=== PATIENT | female | born 1950 | race Caucasian/White ===

== ENCOUNTER → 2020-02-10 13:25 | Outpatient (CLI) | payer MEDICARE, OTHER, SELFPAY ==
--- NOTE | ~2020-02-10 | US_ITS ---
EXAMINATION: US pelvic complete DATE: 02/10/2020 13:50 INDICATION: Left ovarian cyst. TECHNIQUE: Multiple transabdominal sonographic images of the pelvis were obtained. COMPARISON: None. FINDINGS: The uterus measures 5.6 x 2.7 x 3.6 cm. There is no free fluid in the pelvis. The endometrial complex measures 4 mm in thickness. The right ovary measures 2.7 x 1.4 x 2.2 cm. The left ovary measures 7.1 x 5.0 x 6.1 cm. There is a 6.4 cm cyst in left ovary with marginal hypoechoic components. IMPRESSION: 1. 6.4 cm cystic mass in left ovary, which may be benign or malignant. Consider pelvis MRI without an d with contrast or surgical evaluation. Reviewed, dictated and finalized at location A. IMPRESSION: 1. 6.4 cm cystic mass in left ovary, which may be benign or malignant. Consider pelvis MRI without and with contrast or surgical evaluation.
== END ==
PROVIDERS: Visit Provider Obstetrics & Gynecology Gynecology
DX: N83.202 Unspecified ovarian cyst, left side (principal)
CPT/HCPCS: 76856

== ENCOUNTER 2020-12-04 18:01 | IRF | payer OTHER, MEDICARE, SELFPAY ==
--- NOTE | ~2020-12-04 | US_ITS ---
EXAMINATION: US venous doppler [facility] DATE: 12/07/2020 11:10 INDICATION: Lower limb swelling. TECHNIQUE: Grayscale ultrasound images without and with compression and Doppler ultrasound images of the bilateral lower extremity veins were obtained. COMPARISON: None. FINDINGS: The visualized portions of right common femoral vein, profunda (deep) femoral vein, femoral vein, pop liteal vein, peroneal veins, posterior tibial veins, and greater saphenous vein outflow are patent. The visualized portions of left common femoral vein, profunda femoral vein, femoral vein, popliteal v ein, peroneal veins, posterior tibial veins, and greater saphenous vein outflow are patent. IMPRESSION: 1. No deep venous thrombosis. Reviewed, dictated and finalized at location A.
--- NOTE | ~2020-12-04 | US_ITS ---
EXAMINATION: US abdomen limited DATE: 12/09/2020 15:06 INDICATION: Transaminitis TECHNIQUE: Multiple grayscale and Doppler ultrasound images of the abdomen were obtained. COMPARISON: None available FINDINGS: The head and body of the pancreas are normal. The pancreatic tail is obscured by bowel gas. The liver is normal with normal echogenicity and echotexture. No surface nodularity. Normal hepatope felicitas flow in the main portal vein. The gallbladder is normal with no abnormal wall thickening, pericho lecystic fluid or stones. The normal common bile duct measures 4 mm. There was no sonographic Gonsales sign. IMPRESSION: 1. Normal sonographic study of the gallbladder. Reviewed, dictated and finalized at location B.
[2020-12-04 17:40] VITALS: BP 132/62; PULSE 85; RESP 20; TEMP 36.7; O2SAT 96; BMI 22.6
--- NOTE | 2020-12-04 18:58 | ADMGEN ---
This patient, Enriqueta Posada, was admitted to [facility] Room 221-02. Patient/family oriented to hospital policies and general routines including ID bracelet, bed and alarms, visiting hours, pain management, procedures, bathroom and other care routines, personal items, smoking policy, room service/diet, and visiting hours. Information on how to activate the Rapid Response Team has been discussed. Patient/Family are encouraged to report perceived risks to care and to ask questions if they do not understand what they are told or what they should do.
[2020-12-04] MEDS: AZELASTINE HCL NASAL 0.1% 137 MCG/SPR 30 ML BTL 1 SPRAY NASAL (21:08)
[2020-12-04] MEDS: ENOXAPARIN 30 MG/0.3 ML SYRINGE SUB-Q (21:08)
[2020-12-04] MEDS: ENALAPRIL MALEATE 10 MG TABLET PO (21:08)
[2020-12-04 22:00] VITALS: BP 153/69; PULSE 91; RESP 16; TEMP 37.1; O2SAT 92
[2020-12-04] MEDS: ACETAMINOPHEN 500 MG TABLET 1000 MG PO (22:37)
[2020-12-04] MEDS: traMADol HCL (*CRX) 25 MG TABLET PO (22:37)
[2020-12-05 05:48] LABS: Basophils Absolute Auto 0.1 K/mm3 (0.0-0.1); Basophils Percent Auto 0.6 % (0.2-1.2); Eosinophils Absolute Auto 0.4 K/mm3 (0-0.3); Eosinophils Percent Auto 3.8 % (0-4.4); Hematocrit 32.6 % (37.0-47.0); Hemoglobin 11.1 g/dL (12.0-15.0); Immature Granulocyte Absolute 0.04 K/mm3 (0.00-0.031); Immature Granulocyte Percent A 0.4 % (0-0.5); Lymphocytes Percent Auto 24.1 % (18.3-44.2); Mean Corpuscular Hemoglobin 31.3 pg (26-34); Mean Corpuscular Volume 91.8 fl (80-100); Mean Platelet Volume 9.5 fl (7.4-10.4); Monocytes Percent Auto 10.8 % (2.6-8.5); Neutrophils Absolute Auto 5.7 K/mm3 (1.3-6.7); Neutrophils Percent Auto 60.3 % (45.5-73.1); Platelet Count Result 241 k/mm3 (150-375); Red Blood Count 3.55 M/mm3 (4.2-5.4); Red Cell Distribution Width 12.7 % (11.5-14.5); White Blood Count 9.5 K/mm3 (4.5-10.0)
[2020-12-05 06:00] VITALS: BP 138/67; PULSE 78; RESP 16; TEMP 36.7; O2SAT 93
[2020-12-05 06:00] LABS: Alanine Aminotransferase 46 U/L (4-35); Albumin Level 3.3 g/dL (3.5-5.1); Alkaline Phosphatase 57 U/L (38-126); Anion Gap 6 mmol/L (8-16); Aspartate Amino Transferase 72 U/L (14-36); Bilirubin,Total 0.4 mg/dL (0.2-1.3); Blood Urea Nitrogen 7 mg/dL (7-17); Calcium 8.4 mg/dL (8.4-10.2); Carbon Dioxide 30 mmol/L (22-30); Chloride 102 mmol/L (98-107); Estimated CRCL calculation 72 ml/min; Estimated Glomerular Filt Rate > 60; Glucose 89 mg/dL (65-105); Potassium 3.6 mmol/L (3.4-5.0); Sodium 138 mmol/L (137-145)
[2020-12-05] MEDS: ACETAMINOPHEN 500 MG TABLET 1000 MG PO ×2 (08:15→21:34)
[2020-12-05] MEDS: ASPIRIN 325 MG TABLET PO ×2 (08:15→16:55)
[2020-12-05] MEDS: hydroCHLOROthiazide 12.5 MG CAPSULE PO (08:16)
[2020-12-05] MEDS: AZELASTINE HCL NASAL 0.1% 137 MCG/SPR 30 ML BTL 1 SPRAY NASAL (08:16)
[2020-12-05] MEDS: CYANOCOBALAMIN 500 MCG TABLET PO (08:16)
[2020-12-05] MEDS: MULTIVITAMINS THERAPEUTIC TAB (*BKC) 1 TABLET PO (08:17)
[2020-12-05] MEDS: PANTOPRAZOLE 40 MG TABLET PO (08:17)
[2020-12-05] MEDS: polyethylene glycoL 3350 17 GM POWD.PACK PO (08:17)
[2020-12-05] MEDS: ENOXAPARIN 30 MG/0.3 ML SYRINGE SUB-Q ×2 (08:17→20:03)
[2020-12-05] MEDS: ENALAPRIL MALEATE 10 MG TABLET PO ×2 (08:17→20:03)
[2020-12-05] MEDS: traMADol HCL (*CRX) 25 MG TABLET PO ×3 (08:20→21:35)
--- NOTE | 2020-12-05 09:12 | WPDREHABHP ---
H&P: HPI History of Present Illness Date/Time: 12/05/20 09:12 Chief Complaint: HISTORY OF PRESENT ILLNESS: The patient's primary rehab impairment category is 0007 orthopedic lower extremity fracture The etiologic diagnosis is mildly impacted subcapital right femoral neck fracture I saw this patient [id number] on 12/05/2020 The patient is a 70-year-old female with past medical history of bilateral knee osteoarthritis, hypertension, and irritable bowel syndrome presented to local hospital on 12/01/2020 after suffering a mechanical fall. The patient slipped on the garage floor after she mops at. Imaging demonstrated a mildly impacted subcapital right femur neck fracture. The patient was transferred to [facility] for orthopedic surgery consultation. She underwent a closed reduction percutaneous fixation on 12/02/2020 with Wei Julio MD. postoperatively patient experienced acute blood loss anemia, acute postop pain, and hypertension. She is toe-touch weight-bearing to the right lower extremity. DVT prophylaxis is Lovenox. Triston are to be removed in 3 weeks. X-rays to be obtained at that time. Therapy was initiated at the acute care facility and the patient transferred to us from [facility] on 12/04/2020 FALLS OR SURGERIES: patient has undergone a closed reduction percutaneous 6 fixation to the right femur. She is experience 1 fall in the past 6 months. Current LEVEL OF FUNCTION: Eating was [INDEPENDENT] Oral Care was Partial to mod assist Toileting Hygiene was partial to mod assist Shower/Bathing was partial to mod assist Upper Body Dressing was partial to mod assist Lower Body Dressing was partial to mod assist Donning/[place] Footwear was partial to mod assist Rolling Left and Right was partial to mod assist Sit to Lying was partial to mod assist Lying to Sitting was partial to mod assist Sit to Stand was partial to mod assist Bed to Chair Transfers was partial to mod assist Toilet Transfers was partial to mod assist Walking was 25 ft with partial to moderate assistance and rolling walker Wheelchair Mobility was not tested] Stairs werenot tested Prior LEVEL OF FUNCTION: patient was independent with all areas of ADLs mobility and gait. Patient was ambulating without assistive device. Patient was able to go up and down stairs independently. GOALS: Our therapists will evaluate the patient and establish the goals. However, upon pre-admission screening, the expected goals were to be [INDEPENDENT] with self-care, [INDEPENDENT] with transfers, and [INDEPENDENT] with functional mobility so that the patient can return home. ESTIMATED LENGTH OF STAY: [10-14 days] POTENTIAL BARRIERS TO DISCHARGE: [Patient lives alone.] [Family needs training.] .] Architectural barriers. ACTIVE CO-MORBIDITIES PRESENT ON ADMISSION: Active co-morbidities include Status post closed reduction percutaneous fixation, toe-touch weight-bearing, acute blood loss anemia, acute postop pain, decreased appetite, hypertension, irritable bowel syndrome, bilateral osteoarthritis of the knees.. The above co-morbidities impact the patient's function and/or functional outcome by Decreasing mobility gait transfers. Narrative: COVID: The patient has not traveled outside the [place] or had contact with someone who is ill that has traveled outside the [place] in the past 21 days. The patient is not travel to an area of the [place] that is experiencing known transmission of the Coronavirus and has not had close personal contact with anyone that has. The patient does not have a fever. The patient is not experiencing lower respiratory illness symptoms. COVID test negative on Review of Systems Review of Systems All systems reviewed & are unremarkable except as noted in HPI and below Constitutional Constitutional: Reports no additional constitutional complaints Eyes Eyes: Reports no additional eye complaint
[2020-12-05 14:00] VITALS: BP 124/62; PULSE 73; RESP 18; TEMP 36.9; O2SAT 95
--- NOTE | 2020-12-05 16:28 | PM.IMCN ---
Assessment and Plan Assessment and plan (1) Subcapital fracture of neck of right femur: Code(s): S72.011A - Unspecified intracapsular fracture of right femur, initial encounter for closed fracture Status: Acute Assessment and Plan: patient will follow up with Dr. Carey is in 3 weeks for staple removal and repeat x-ray. Patient is toe-touch weight-bearing Rehab managed by [facility] (2) Irritable bowel syndrome: Code(s): K58.9 - Irritable bowel syndrome without diarrhea Status: Acute Assessment and Plan: Monitor (3) Hypertension: Code(s): I10 - Essential (primary) hypertension Status: Acute Assessment and Plan: Vasotec 10 mg q.12, hydrochlorothiazide 12.5 mg daily BP 124/62 Trend blood pressure Adjust medications as needed (4) Osteoarthritis of knees, bilateral: Code(s): M17.0 - Bilateral primary osteoarthritis of knee Status: Acute Assessment and Plan: monitor (5) DVT prophylaxis: Code(s): Z29.9 - Encounter for prophylactic measures, unspecified Status: Acute Assessment and Plan: Lovenox 30 mg b.i.d. (6) Postoperative pain: Code(s): G89.18 - Other acute postprocedural pain Status: Acute Assessment and Plan: Tylenol 1000 mg b.i.d. p.r.n. tramadol HPI Data of Consult Consult date: 12/05/20 Requesting Physician: Carissa Pacheco DO Primary Care Provider: Hank Richards, Consult Narrative Narrative: Enriqueta Posada is a 70 year old female with a past medical history of HTN that came to [facility] for rehab. She stated that she is very active. She said that she was actually cleaning out her garage and slipped on a wet spot and landed on her right hip. She was taken to [facility] where they did in repair of the right femur and then transferred here for a few days of rehab. Currently patient is resting in bed she did do therapy today she does not have any pain and states that she is normally active. Patient denies chest pain, shortness breath, nausea, diarrhea, vomiting, constipation, lightheadedness, dizziness, weakness fatigue syncope and falls. Review of Systems Review of Systems: All systems reviewed & are unremarkable except as noted in HPI and below PMFSH Past Medical History Medical History (Updated 12/05/20 @ 16:31 by ERICA Bo) Adnexal cyst Colon polyp History of bacterial sinusitis Hypertension Irritable bowel syndrome Malignant melanoma Osteoarthritis of knees, bilateral Ovarian cyst Right femoral fracture Family History Family History Father No problems noted. Social History Social History Social History: patient lives alone in a 2 level home with 1 step to enter. Twelve stairs to the 2nd level where the bedroom and bathroom are. Family members are obtaining a hospital bed and placing it on the 1st floor. Patient was completely independent working full-time as a real estate photographer. She has 3 adult children that live close by and can be supportive. Patient has a history of smoking quit in 1973, she drinks 1 glass of wine per week. No drug abuse. Smoking status: Former smoker Alcohol intake: current Drinks per week: 4 Substance use: never Substance use type: does not use Gender identity (if verbalized by the patient): Female Sexual Orientation (if Verbalized by the Patient): Straight or Heterosexual Spiritual care concerns: Yes ([facility]) Meds Home Medications and Allergies Home Medications Medication Instructions Recorded Confirmed Type Adult One Daily Multivitamin 1 tablet PO DAILY 12/04/20 12/04/20 History Calcium 500 + D 1 tab-cap PO DAILY 12/04/20 12/04/20 History Tylenol Ex Str Rapid Release 1,000 mg PO BID 12/04/20 12/04/20 History aspirin 325 mg PO BID
[2020-12-05 20:00] VITALS: PULSE 88; RESP 16; O2SAT 97
[2020-12-05] MEDS: FLUTICASONE PROPIONATE 0.05% NA SPR 16 GM BTL (*BKC) 1 SPRAY NASAL (20:03)
[2020-12-05 21:57] VITALS: BP 134/73; PULSE 88; RESP 16; TEMP 36.2; O2SAT 97
[2020-12-05] MEDS: HYDROCORTISONE 1% 30 GM CREAM 1 APPLIC TOPICAL (22:49)
[2020-12-06 06:00] VITALS: BP 135/74; PULSE 75; RESP 16; TEMP 35.9; O2SAT 96
--- NOTE | 2020-12-06 08:19 | WPDNEURORHBP ---
Subjective Date/time seen: 12/06/20 08:19 Interval history: The etiologic diagnosis is mildly impacted subcapital right femoral neck fracture The patient is a 70-year-old female with past medical history of bilateral knee osteoarthritis, hypertension, and irritable bowel syndrome presented to local hospital on 12/01/2020 after suffering a mechanical fall. The patient slipped on the garage floor after she mops at. Imaging demonstrated a mildly impacted subcapital right femur neck fracture. The patient was transferred to [facility] for orthopedic surgery consultation. She underwent a closed reduction percutaneous fixation on 12/02/2020 with Wei Julio MD. postoperatively patient experienced acute blood loss anemia, acute postop pain, and hypertension. She is toe-touch weight-bearing to the right lower extremity. DVT prophylaxis is Lovenox. Triston are to be removed in 3 weeks. X-rays to be obtained at that time. Therapy was initiated at the acute care facility and the patient transferred to us from [facility] on 12/04/2020 12/06/20 Patient admits to postop constipation, insomnia. Patient states that she was only on Vasotec once a day medications were adjusted and ongoing monitoring to determine adequate dosing will continue. Functional Status Ambulation Ability Ability to Ambulate 10 Feet: Standby Assistance Ability to Ambulate 50 Feet With 2 Turns: Standby Assistance Ambulation Assistive Devices: Walker, Standard Transfers Ability Ability to Transfer In/Out of Chair: Standby Assistance Exam Narrative: Exam Narrative: Patient is a young 70-year-old female in no acute distress. Patient is alert and oriented x4. Head is normocephalic. Extraocular muscles are intact. Neck is supple. Heart rate rhythm is regular. Lungs are clear to auscultation. Abdomen is soft nontender. Bilateral upper extremity strength are 4+ out of 5. Left lower extremity strength is 4/5. Right is 3/5 proximally and distally 4/5. Dressing is dry no drainage noted. Objective Data Vital Signs Vital Signs: Vital Signs - 24 hr 12/05/20 14:00 12/05/20 20:00 12/05/20 21:57 Temperature 36.9 C 36.2 C L Pulse Rate 73 88 88 Respiratory Rate 18 16 16 Blood Pressure 124/62 134/73 Pulse Oximetry 95 97 97 12/06/20 06:00 Temperature 35.9 C L Pulse Rate 75 Respiratory Rate 16 Blood Pressure 135/74 Pulse Oximetry 96 Intake/Output Intake/Output: Intake & Output 12/03/20 12/04/20 12/05/20 12/06/20 23:59 23:59 23:59 23:59 Intake Total 480 Balance 480 Meds/Results Medications: Active Medications Generic Name Dose Route Start Last Admin Trade Name Freq PRN Reason Stop Dose Admin Acetaminophen 1,000 mg 12/04/20 22:32 12/05/20 21:34 Acetaminophen 500 Mg Tablet PO 1,000 mg Q6HR PRN Administration Pain Rated 1-3 Acetaminophen 1,000 mg 12/06/20 08:00 Acetaminophen 500 Mg Tablet PO BID@0800,1300 [facility] Aspirin 325 mg 12/05/20 09:00 12/05/20 16:55 Aspirin 325 Mg Tablet PO 325 mg BID [facility] Administration Azelastine HCl 1 spray 12/06/20 08:00 Azelastine Hcl Nasal 0.1% 137 Mcg/Spr 30 Ml Btl NASAL DAILY@0800 [facility] Calcium Carbonate 500 mg 12/05/20 09:00 12/05/20 08:16 Calcium/Vitamin D 500 Mg Tablet PO 01/04/21 09:01 500 mg DAILY [facility] Administration Cyanocobalamin 500 mcg 12/05/20 09:00 12/05/20 08:16 Cyanocobalamin 500 Mcg Tablet PO 01/04/21 09:01 500 mcg DAILY [facility] Administration Cyclobenzaprine HCl 5 mg 12/04/20 18:44 Cyclobenzaprine Hcl 5 Mg Tablet PO TID PRN Muscle Spasm Enalapril Maleate 10 mg 12/06/20 09:00 Enalapril Maleate 10 Mg Tablet PO QAM [facility] Enoxaparin Sodium 30 mg 12/04/20 21:00 12/05/20 20:03 Enoxaparin 30 Mg/0.3 Ml Syringe SUB-Q 30 mg Q12HR [facility] Administration Ergocalciferol 50,000 unit 12/09/20 09:00 Ergocalciferol 50,000 Unit Capsule PO We@0900 [facility] Estrogens Conjuga
[2020-12-06] MEDS: ACETAMINOPHEN 500 MG TABLET 1000 MG PO ×3 (08:24→17:14)
[2020-12-06] MEDS: ASPIRIN 325 MG TABLET PO ×2 (08:25→17:09)
[2020-12-06] MEDS: MULTIVITAMINS THERAPEUTIC TAB (*BKC) 1 TABLET PO (08:26)
[2020-12-06] MEDS: PANTOPRAZOLE 40 MG TABLET PO (08:26)
[2020-12-06] MEDS: polyethylene glycoL 3350 17 GM POWD.PACK PO (08:26)
[2020-12-06] MEDS: CYANOCOBALAMIN 500 MCG TABLET PO (08:26)
[2020-12-06] MEDS: ENOXAPARIN 30 MG/0.3 ML SYRINGE SUB-Q ×2 (08:26→21:20)
[2020-12-06] MEDS: hydroCHLOROthiazide 12.5 MG CAPSULE PO (08:26)
[2020-12-06] MEDS: traMADol HCL (*CRX) 25 MG TABLET PO ×2 (08:28→22:29)
[2020-12-06] MEDS: AZELASTINE HCL NASAL 0.1% 137 MCG/SPR 30 ML BTL 1 SPRAY NASAL (09:59)
[2020-12-06] MEDS: ENALAPRIL MALEATE 10 MG TABLET PO (09:59)
[2020-12-06 13:25] VITALS: BP 143/62; PULSE 87; RESP 18; TEMP 35.9; O2SAT 97
[2020-12-06] MEDS: FLUTICASONE PROPIONATE 0.05% NA SPR 16 GM BTL (*BKC) 1 SPRAY NASAL (21:19)
[2020-12-06 22:00] VITALS: BP 143/71; PULSE 80; RESP 18; TEMP 36; O2SAT 99
[2020-12-07 05:04] LABS: Basophils Absolute Auto 0.1 K/mm3 (0.0-0.1); Basophils Percent Auto 0.9 % (0.2-1.2); Eosinophils Absolute Auto 0.4 K/mm3 (0-0.3); Hematocrit 32.8 % (37.0-47.0); Hemoglobin 11.3 g/dL (12.0-15.0); Immature Granulocyte Absolute 0.02 K/mm3 (0.00-0.031); Immature Granulocyte Percent A 0.3 % (0-0.5); Lymphocytes Absolute Auto 1.72 K/mm3 (0.9-3.2); Lymphocytes Percent Auto 23.1 % (18.3-44.2); Mean Corpuscular HGB Conc 34.5 g/dl (32-36); Mean Corpuscular Volume 90.1 fl (80-100); Mean Platelet Volume 8.6 fl (7.4-10.4); Monocytes Absolute Auto 0.8 K/mm3 (0.1-0.6); Neutrophils Absolute Auto 4.5 K/mm3 (1.3-6.7); Neutrophils Percent Auto 59.7 % (45.5-73.1); Platelet Count Result 272 k/mm3 (150-375); Red Blood Count 3.64 M/mm3 (4.2-5.4); Red Cell Distribution Width 12.5 % (11.5-14.5); White Blood Count 7.5 K/mm3 (4.5-10.0)
[2020-12-07 06:00] VITALS: BP 140/66; PULSE 63; RESP 18; TEMP 36.1; O2SAT 96
[2020-12-07] MEDS: polyethylene glycoL 3350 17 GM POWD.PACK PO (08:32)
[2020-12-07] MEDS: ENOXAPARIN 30 MG/0.3 ML SYRINGE SUB-Q ×2 (08:32→21:37)
[2020-12-07] MEDS: MULTIVITAMINS THERAPEUTIC TAB (*BKC) 1 TABLET PO (08:33)
[2020-12-07] MEDS: PANTOPRAZOLE 40 MG TABLET PO (08:33)
[2020-12-07] MEDS: CYANOCOBALAMIN 500 MCG TABLET PO (08:33)
[2020-12-07] MEDS: hydroCHLOROthiazide 12.5 MG CAPSULE PO (08:33)
[2020-12-07] MEDS: ENALAPRIL MALEATE 10 MG TABLET PO (08:33)
[2020-12-07] MEDS: ASPIRIN 325 MG TABLET PO ×2 (08:33→16:59)
[2020-12-07] MEDS: AZELASTINE HCL NASAL 0.1% 137 MCG/SPR 30 ML BTL 1 SPRAY NASAL (08:33)
[2020-12-07] MEDS: ACETAMINOPHEN 500 MG TABLET 1000 MG PO ×2 (08:34→12:25)
[2020-12-07 09:10] LABS: Alanine Aminotransferase 269 U/L (4-35); Albumin Level 3.5 g/dL (3.5-5.1); Alkaline Phosphatase 90 U/L (38-126); Anion Gap 4 mmol/L (8-16); Aspartate Amino Transferase 231 U/L (14-36); Bilirubin,Total 0.5 mg/dL (0.2-1.3); Blood Urea Nitrogen 9 mg/dL (7-17); Calcium 9.3 mg/dL (8.4-10.2); Carbon Dioxide 32 mmol/L (22-30); Chloride 101 mmol/L (98-107); Estimated CRCL calculation 72 ml/min; Estimated Glomerular Filt Rate > 60; Glucose 104 mg/dL (65-105); Potassium 3.6 mmol/L (3.4-5.0); Sodium 137 mmol/L (137-145)
--- NOTE | 2020-12-07 10:26 | RPD ---
INDIVIDUALIZED PLAN OF CARE FOR Enriqueta Posada Brief Synthesis of Pre-Admission Screen, Post-Admission Evaluation and Therapy Evaluations: The patient presents to rehab with a mildly impacted subcapital right removal neck fracture. Comorbidities include:status post closed reduction percutaneous fixation, acute blood loss anemia, acute postoperative pain, hypertension, and IBS. Post-op complications have included ABLA, acute post-operative pain, and hypertension. The complexity of the patient's medical management, nursing, and therapy needs require an inpatient rehab hospital stay with a physician-led interdisciplinary team approach. The patient?s needs will be best met in an intensive program vs. at a lower level of care. The patient requires physician services for medical oversight, management of postop complications in setting of present comorbidities, and pain management. She will be followed at least three times a week by the rehabilitation physician. Labs will be drawn to monitor blood counts and electrolytes periodically. The patient requires nursing services for DVT prophylactics, infection protection, medication management and education, pressure relief, and wound care. Deficits include:ADLs, Balance, Endurance, Family Training/Education, Mobility, Pain Management, ROM, Safety, Strength, Transfers [employer] Teammate/Case Management for: Discharge Planning and Patient/Family Counseling Physical Therapy: 5 days per week for 90 minutes. Treatments may include: Therapeutic Exercise, Gait Training, Neuromuscular Re-education, Transfer Training, Community Reintegration, Bed Mobility, Patient/Family Education, Wheelchair Mobility Group Therapy/Concurrent Therapy Rationales: -Improve attention span during functional activities in a distracted environment. -Enhance problem solving and/or adequate judgment skills during functional activities in a distracted environment. -Promote increased safety awareness in a distracted environment to reduce fall risk with functional tasks, transfers, and ambulation to allow a more safe, self-sufficient return to the home environment. -Improve dynamic balance skills to promote safety and independence with functional activities in a distracted environment for maximum gain. Occupational Therapy: 5 days per week for 90 minutes. Treatments may include: Therapeutic Exercise, Therapeutic Activity, Cognitive Training, Self-Care Transfer Training, Community Reintegration, Home Management, Patient/Family Education, Wheelchair Mobility Training, Energy Conservation Training Group Therapy/Concurrent Therapy Rationales: -Allow therapist to observe and teach generalization and carry-over of skills learned in individual therapy. -Enhance problem solving and sequencing skills during therapeutic activities in a distracted environment. -Promote increased safety awareness in a realistic setting to reduce fall risk with functional tasks due to visual and verbal distractions. -Increase functional level with ADLs, ADL transfers and use of adaptive equipment through therapeutic activities with others while promoting safety to allow a more safe, self-sufficient return home. Medical Prognosis: Good Anticipated Length of Stay: 7 days Rehab Goals: Eating Goal: 06-Independent Oral Hygiene Goal: 06-Independent Toileting Hygiene Goal: 06-Independent Shower/Bathe Self Goal: 06-Independent Upper Body Dressing Goal: 06-Independent Lower Body Dressing Goal: 06-Independent Putting On/Taking Off Footwear Goal: 06-Independent Rolling Left and Right Goal: 06-Independent Sit to Lying Goal: 06-Independent Lying to Sitting on Side of Bed Goal: 06-Independent Sit to Stand Goal: 06-Independent Chair/[id number] Transfer Goal: 06-Independent Toilet Transfer Goal: 06-Independent Car Transfer Goal: 06-Independent Walk 10' Goal: 06-Independent Walk 50' with Two Turns Goal: 06-Independent Walk 150' Goal: 06-Independent Walk 10' on Uneven Surface Goal: 06-Independ
--- NOTE | 2020-12-07 11:23 | WPDNEURORHBP ---
Subjective Date/time seen: 12/07/20 11:23 Interval history: The etiologic diagnosis is mildly impacted subcapital right femoral neck fracture The patient is a 70-year-old female with past medical history of bilateral knee osteoarthritis, hypertension, and irritable bowel syndrome presented to local hospital on 12/01/2020 after suffering a mechanical fall. The patient slipped on the garage floor after she mops at. Imaging demonstrated a mildly impacted subcapital right femur neck fracture. The patient was transferred to [facility] for orthopedic surgery consultation. She underwent a closed reduction percutaneous fixation on 12/02/2020 with Wei Julio MD. postoperatively patient experienced acute blood loss anemia, acute postop pain, and hypertension. She is toe-touch weight-bearing to the right lower extremity. DVT prophylaxis is Lovenox. Triston are to be removed in 3 weeks. X-rays to be obtained at that time. Therapy was initiated at the acute care facility and the patient transferred to us from [facility] on 12/04/2020 12/06/20 Patient admits to postop constipation, insomnia. Patient states that she was only on Vasotec once a day medications were adjusted and ongoing monitoring to determine adequate dosing will continue. Patient with complaints of Right thigh and knee swelling. Venous Doppler is negative. Review of Systems Review of Systems: All systems reviewed & are unremarkable except as noted in HPI and below Constitutional: Constitutional: Reports no additional constitutional complaints Eyes: Eyes: Reports no additional eye complaints ENT: Reports system reviewed and no additional complaints, except as documented Cardiovascular: Cardiovascular: Reports no additional cardiovascular complaints Respiratory: Respiratory: Reports no additional respiratory complaints Genitourinary: Genitourinary: Reports no additional female genitourinary complaints Integumentary/Breasts: Skin/Breast: Reports pruritus ( to her back. Hydrocortisone cream has been ordered) Neurologic: Reports system reviewed and no additional complaints, except as documented Psychiatric: Psychiatric: Reports no additional psychiatric complaints Functional Status Ambulation Ability Ability to Ambulate 10 Feet: Standby Assistance Ability to Ambulate 50 Feet With 2 Turns: Standby Assistance Ambulation Assistive Devices: Walker, Standard Transfers Ability Ability to Transfer In/Out of Chair: Standby Assistance Exam Narrative: Exam Narrative: Patient is a young 70-year-old female in no acute distress. Patient is alert and oriented x4. Head is normocephalic. Extraocular muscles are intact. Neck is supple. Heart rate rhythm is regular. Lungs are clear to auscultation. Abdomen is soft nontender. Bilateral upper extremity strength are 4+ out of 5. Left lower extremity strength is 4/5. Right is 3/5 proximally and distally 4/5. Dressing is dry no drainage noted. Incision shows no drainage. Clean and dry. Bruising is noted to the posterior aspect of her right hip. Transfers are improving at standby assistance. Patient is maintaining toe-touch weight-bearing well. Objective Data Vital Signs Vital Signs: Vital Signs - 24 hr 12/06/20 13:25 12/06/20 22:00 12/07/20 06:00 Temperature 35.9 C L 36.0 C L 36.1 C L Pulse Rate 87 80 63 Respiratory Rate 18 18 18 Blood Pressure 143/62 H 143/71 H 140/66 Pulse Oximetry 97 99 96 Intake/Output Intake/Output: Intake & Output 12/04/20 12/05/20 12/06/20 12/07/20 23:59 23:59 23:59 23:59 Intake Total 480 720 480 Balance 480 720 480 Meds/Results Medications: Active Medications Generic Name Dose Route Start Last Admin Trade Name Freq PRN Reason Stop Dose Admin Acetaminophen 1,000 mg 12/04/20 22:32 12/06/20 17:14 Acetaminophen 500 Mg Tablet PO 1,000 mg Q6HR PRN Administration Pain Rated 1-3 Acetaminophen 1,000 mg 12/06/20 08:00
--- NOTE | 2020-12-07 12:17 | PM.IMPN ---
Progress Note: A&P Assessment and Plan (1) Subcapital fracture of neck of right femur: Code(s): S72.011A - Unspecified intracapsular fracture of right femur, initial encounter for closed fracture Status: Acute Assessment and Plan: Underwent closed reduction with percutaneous fixation on 12/02/[address] Wei Julio at [place]. Tolerated procedure well and pain is well controlled. Rehab managed by [facility] Follow up with orthopedics in 3 weeks for staple removal and repeat x-ray. Patient is toe-touch weight-bearing Analgesics available as needed for pain Venous doppler of right leg negative for DVT (2) Irritable bowel syndrome: Code(s): K58.9 - Irritable bowel syndrome without diarrhea Status: Acute Assessment and Plan: With constipation. No acute issues at this time. She is not on any specific medications for this and manages mostly with diet changes. Continue miralax daily (3) Hypertension: Code(s): I10 - Essential (primary) hypertension Status: Acute Assessment and Plan: Blood pressure reviewed and has been generally well controlled. Last BP 140/66 continue enalapril home and hydrochlorothiazide monitor BP trends (4) Transaminitis: Code(s): R74.01 - Elevation of levels of liver transaminase levels Status: Acute Assessment and Plan: AST and ALT are significantly elevated today compared to mild elevation noted on labs 12/05. Etiology for this is unclear. Possibly due to increased acetaminophen use. 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 Consider RUQ US if no improvement. (5) DVT prophylaxis: Code(s): Z29.9 - Encounter for prophylactic measures, unspecified Status: Acute Assessment and Plan: Lovenox 30 mg b.i.d. Subjective Date/time seen: 12/07/20 12:17 Interval history: Date of service: 12/07/20 Enriqueta Bobby is a 70-year-old female with a history of hypertension, irritable bowel syndrome, melanoma who is seen in rehab after undergoing surgery for subcapital right femoral neck fracture. she is seen in consultation for medical management. She is feeling well today. Last night, she noticed some swelling of her right lower extremity around her knee and thigh. She felt the area was warm and tender. She feels that it is a lot better today and is no longer warm or tender. She reports her pain is 4/10 at this time. It got up to 7/10 this morning but improved with analgesics. She had a bowel movement last night. She denies abdominal pain or cramping but feels bloated. She denies urinary symptoms. She has been getting around pretty well with therapy. She denies shortness of breath, cough, chest pain, or palpitations. Review of Systems Review of Systems: All systems reviewed & are unremarkable except as noted in HPI and below Exam Narrative: Exam Narrative: Ms. Posada is a well-nourished, well-appearing 70-year-old female who is sitting in a wheelchair, eating lunch. She appears comfortable and is in NARD. Neuro: awake, alert and oriented x4, speech clear, no focal neuro deficits noted HEENMT: normocephalic, atraumatic, EOMI, sclerae anicteric, moist oral mucosa Neck: supple, no lymphadenopathy Respiratory: clear to auscultation bilaterally, nonlabored breathing Cardio: regular rate, regular rhythm with S1-S2 Abdomen: nondistended, normoactive bowel sounds, soft, nontender to palpation Extremities: right hip is mildly tender to palpation. incision site is covered with bandage that is c/d/i. Right thigh and knee with trace edema. No erythema or warmth. Bilateral calves without edema, erythema, cyanosis, clubbing, or tenderness to palpation. DP pulses 2+ bilaterally Skin: no rashes or lesions, warm and dry Psych: appropriate mood and affect, judgment and insight intact Objective Data Vital Signs Vital Signs: Vital Signs - 24 hr 12/06/20 13:25 12/06/20 22:00 12/07
[2020-12-07 13:03] VITALS: BMI 22.6
[2020-12-07 14:00] VITALS: BP 126/72; PULSE 89; RESP 20; TEMP 36.4; O2SAT 97
[2020-12-07 20:00] VITALS: PULSE 76; RESP 18; O2SAT 97
[2020-12-07] MEDS: FLUTICASONE PROPIONATE 0.05% NA SPR 16 GM BTL (*BKC) 1 SPRAY NASAL (21:38)
[2020-12-07 22:00] VITALS: BP 139/74; PULSE 76; RESP 18; TEMP 36.9; O2SAT 97
[2020-12-07] MEDS: traMADol HCL (*CRX) 25 MG TABLET PO (22:09)
[2020-12-08] MEDS: traMADol HCL (*CRX) 25 MG TABLET PO ×3 (04:02→22:19)
[2020-12-08 05:35] LABS: Alanine Aminotransferase 383 U/L (4-35); Albumin Level 3.6 g/dL (3.5-5.1); Alkaline Phosphatase 104 U/L (38-126); Anion Gap 5 mmol/L (8-16); Aspartate Amino Transferase 363 U/L (14-36); Bilirubin,Total 0.7 mg/dL (0.2-1.3); Blood Urea Nitrogen 10 mg/dL (7-17); Calcium 9.3 mg/dL (8.4-10.2); Carbon Dioxide 31 mmol/L (22-30); Chloride 100 mmol/L (98-107); Estimated CRCL calculation 72 ml/min; Estimated Glomerular Filt Rate > 60; Glucose 96 mg/dL (65-105); Potassium 3.7 mmol/L (3.4-5.0); Sodium 136 mmol/L (137-145)
[2020-12-08 06:00] VITALS: BP 143/70; PULSE 75; RESP 16; TEMP 36.8; O2SAT 98
[2020-12-08 06:29] LABS: Hepatitis B Surface Antigen Negative (Negative)
[2020-12-08 06:35] LABS: HAV RESULT Negative (Negative); Hepatitis B Core IgM Result Negative (Negative)
[2020-12-08 06:47] LABS: Hepatitis C Virus Antibody Negative (Negative)
[2020-12-08 08:00] VITALS: PULSE 75; RESP 16; O2SAT 98
[2020-12-08] MEDS: ASPIRIN 325 MG TABLET PO ×2 (09:30→17:33)
[2020-12-08] MEDS: PANTOPRAZOLE 40 MG TABLET PO (09:31)
[2020-12-08] MEDS: AZELASTINE HCL NASAL 0.1% 137 MCG/SPR 30 ML BTL 1 SPRAY NASAL (09:31)
[2020-12-08] MEDS: MULTIVITAMINS THERAPEUTIC TAB (*BKC) 1 TABLET PO (09:31)
[2020-12-08] MEDS: ENALAPRIL MALEATE 10 MG TABLET PO (09:31)
[2020-12-08] MEDS: hydroCHLOROthiazide 12.5 MG CAPSULE PO (09:31)
[2020-12-08] MEDS: CYANOCOBALAMIN 500 MCG TABLET PO (09:31)
[2020-12-08] MEDS: polyethylene glycoL 3350 17 GM POWD.PACK PO (09:32)
[2020-12-08 09:56] LABS: Acetaminophen < 10 ug/mL (10-30)
[2020-12-08] MEDS: ENOXAPARIN 30 MG/0.3 ML SYRINGE SUB-Q (10:22)
--- NOTE | 2020-12-08 12:12 | WPDNEURORHBP ---
Subjective Date/time seen: 12/08/20 12:12 Interval history: The etiologic diagnosis is mildly impacted subcapital right femoral neck fracture The patient is a 70-year-old female with past medical history of bilateral knee osteoarthritis, hypertension, and irritable bowel syndrome presented to local hospital on 12/01/2020 after suffering a mechanical fall. The patient slipped on the garage floor after she mops at. Imaging demonstrated a mildly impacted subcapital right femur neck fracture. The patient was transferred to [facility] for orthopedic surgery consultation. She underwent a closed reduction percutaneous fixation on 12/02/2020 with Wei Julio MD. postoperatively patient experienced acute blood loss anemia, acute postop pain, and hypertension. She is toe-touch weight-bearing to the right lower extremity. DVT prophylaxis is Lovenox. Zee are to be removed in 3 weeks. X-rays to be obtained at that time. Therapy was initiated at the acute care facility and the patient transferred to us from [facility] on 12/04/2020 12/06/20 Patient admits to postop constipation, insomnia. Patient states that she was only on Vasotec once a day medications were adjusted and ongoing monitoring to determine adequate dosing will continue. Patient with complaints of Right thigh and knee swelling. Venous Doppler is negative. 12/07/20 No complaints 12/08/20 Patient is somewhat anxious but feels that she will be prepared for discharge on Monday. Patient has been going to the bathroom without using the call light. Team conference: Patient daughter and son were present via the phone. Tylenol currently is on hold due to elevated AST and ALT levels. Patient also is bearing too much weight through the right lower extremity. We will make patient nonweightbearing. Patient will follow up with Dr. Carey is on December 24 at 8:40 a.m. and zee will be removed.Patient is on Lovenox 30 mg BID. I have left a message with Dr. Julio office regarding duration of Lovenox and if any oral substitutions can be used. patient is at standby to Min assist with mobility and standby to contact guard with ADLs. We are anticipating a discharge date on Monday. Patient has her own walker. Due to patient's nonweightbearing status would recommend a wheelchair, sock aide, walker basket. Recommending home health care PT OT and nursing with transition to outpatient therapy when appropriate. I spoke with Dr. Poole office,Shayy, who is recommending Lovenox be decreased to 40 mg daily and for a total of 4 weeks ending on December 29, 2020. Patient is independent administrating her own Lovenox Review of Systems Review of Systems: All systems reviewed & are unremarkable except as noted in HPI and below Constitutional: Constitutional: Reports no additional constitutional complaints Eyes: Eyes: Reports no additional eye complaints ENT: Reports system reviewed and no additional complaints, except as documented Cardiovascular: Cardiovascular: Reports no additional cardiovascular complaints Respiratory: Respiratory: Reports no additional respiratory complaints Genitourinary: Genitourinary: Reports no additional female genitourinary complaints Integumentary/Breasts: Skin/Breast: Reports pruritus ( to her back. Hydrocortisone cream has been ordered) Neurologic: Reports system reviewed and no additional complaints, except as documented Psychiatric: Psychiatric: Reports no additional psychiatric complaints Functional Status Ambulation Ability Ability to Ambulate 10 Feet: Standby Assistance Ability to Ambulate 50 Feet With 2 Turns: Standby Assistance Ambulation Assistive Devices: Walker, Standard Transfers Ability Ability to Transfer In/Out of Chair: Standby Assistance Exam Narrative: Exam Narrative: Head is normocephalic. Mood is good. Extraocular muscles are intact. Heart rate and rhythm is regular. Lungs are clear to auscultation. Abdomen i
[2020-12-08 14:00] VITALS: BP 120/62; PULSE 84; RESP 16; TEMP 36.8; O2SAT 98
--- NOTE | 2020-12-08 15:35 | PCPTNOTE ---
Ilene Stroud PTA completed an inpatient rehab wheelchair evaluation on Enriqueta Posada on 12/08/2020. The patient is unable to safely and independently ambulate household distances due to their current impairments. Their diagnosis is R Hip Fracture and their impairments include decreased strength, decreased endurance, decreased range of motion, decreased balance and lower extremity weakness. Enriqueta's weight bearing status is weight-bearing as tolerated on the left lower leg and right lower leg toe touch weight bearing. The patient demonstrates significant functional mobility limitations that impair their ability to participate in mobility-related activities of daily living (MRADLs), including toileting, feeding, dressing, grooming, and bathing in the customary locations in the home. These limitations cannot be sufficiently resolved by the use of an appropriately fitted cane or walker. It is recommended that the patient utilize a wheelchair for functional mobility within the home in order to facilitate optimal safety, independence and participation in all MRADL's and adequately access their home environment on a regular basis. The patient's home provides adequate access between rooms, maneuvering space, and surfaces to accommodate the recommended wheelchair. The use of a wheelchair for functional mobility is strongly recommended and the patient is receptive to using the wheelchair. The use of this wheelchair will significantly improve the patient's ability to participate in MRADLS and the patient will use it on a regular basis in the home. This will facilitate optimal safety, independence, and participation. The patient has demonstrated sufficient physical and mental capabilities needed to safely propel a manual wheelchair that is provided in the home during a typical day. Recommended Wheelchair Frame: Standard Recommended Wheelchair Size: 16x16 Recommended Wheelchair Cushion:standard Wheelchair Leg Recommendations: right lower extremity elevating leg rest and left leg swing away - Elevating leg rests are recommended because the patient has significant edema of the lower extremities that requires an elevating leg rest. -Anti-tippers are recommended due to patient demonstrating increased risk for falls. They would benefit from anti-tippers with added safety and stabilization. Ilene Luanne KILLIAN 12/08/2020 Evaluating Therapist Date I agree with and certify that the above recommendation is medically necessary. Referring Physician Date I agree with and certify that the above recommendation is medically necessary. Referring Physician Date
[2020-12-08] MEDS: CYCLOBENZAPRINE HCL 5 MG TABLET PO (15:41)
[2020-12-08] MEDS: FLUTICASONE PROPIONATE 0.05% NA SPR 16 GM BTL (*BKC) 1 SPRAY NASAL (21:23)
[2020-12-08 21:58] VITALS: BP 127/81; PULSE 73; RESP 16; TEMP 36.7; O2SAT 98
[2020-12-09 05:21] LABS: Alanine Aminotransferase 534 U/L (4-35); Albumin Level 3.6 g/dL (3.5-5.1); Alkaline Phosphatase 106 U/L (38-126); Anion Gap 6 mmol/L (8-16); Aspartate Amino Transferase 466 U/L (14-36); Bilirubin,Total 0.6 mg/dL (0.2-1.3); Blood Urea Nitrogen 12 mg/dL (7-17); Calcium 9.2 mg/dL (8.4-10.2); Carbon Dioxide 31 mmol/L (22-30); Chloride 99 mmol/L (98-107); Estimated CRCL calculation 61 ml/min; Estimated Glomerular Filt Rate > 60; Glucose 96 mg/dL (65-105); Potassium 3.8 mmol/L (3.4-5.0); Sodium 136 mmol/L (137-145)
[2020-12-09 05:49] VITALS: BP 128/65; PULSE 61; RESP 16; TEMP 36.9; O2SAT 97
[2020-12-09 09:03] LABS: Lipase 53 U/L (23-300)
[2020-12-09] MEDS: ERGOCALCIFEROL 50,000 UNIT CAPSULE 50000 UNITS PO (09:15)
[2020-12-09] MEDS: ENOXAPARIN 40 MG/0.4 ML SYRINGE SUB-Q (09:15)
[2020-12-09] MEDS: ASPIRIN 325 MG TABLET PO (09:15)
[2020-12-09] MEDS: MULTIVITAMINS THERAPEUTIC TAB (*BKC) 1 TABLET PO (09:15)
[2020-12-09] MEDS: AZELASTINE HCL NASAL 0.1% 137 MCG/SPR 30 ML BTL 1 SPRAY NASAL (09:15)
[2020-12-09] MEDS: CYCLOBENZAPRINE HCL 5 MG TABLET PO (09:15)
[2020-12-09] MEDS: hydroCHLOROthiazide 12.5 MG CAPSULE PO (09:16)
[2020-12-09] MEDS: CYANOCOBALAMIN 500 MCG TABLET PO (09:16)
[2020-12-09] MEDS: polyethylene glycoL 3350 17 GM POWD.PACK PO (09:16)
[2020-12-09] MEDS: ENALAPRIL MALEATE 10 MG TABLET PO (09:16)
[2020-12-09] MEDS: PANTOPRAZOLE 40 MG TABLET PO (09:16)
[2020-12-09] MEDS: LIDOCAINE 5% PATCH 1 PATCH TRANSDERM (11:07)
[2020-12-09 14:00] VITALS: BP 137/68; PULSE 69; RESP 20; TEMP 36.7; O2SAT 100
--- NOTE | 2020-12-09 14:11 | WPDNEURORHBP ---
Subjective Date/time seen: 12/09/20 14:11 Interval history: The etiologic diagnosis is mildly impacted subcapital right femoral neck fracture The patient is a 70-year-old female with past medical history of bilateral knee osteoarthritis, hypertension, and irritable bowel syndrome presented to local hospital on 12/01/2020 after suffering a mechanical fall. The patient slipped on the garage floor after she mops at. Imaging demonstrated a mildly impacted subcapital right femur neck fracture. The patient was transferred to [facility] for orthopedic surgery consultation. She underwent a closed reduction percutaneous fixation on 12/02/2020 with Wei Julio MD. postoperatively patient experienced acute blood loss anemia, acute postop pain, and hypertension. She is toe-touch weight-bearing to the right lower extremity. DVT prophylaxis is Lovenox. Zee are to be removed in 3 weeks. X-rays to be obtained at that time. Therapy was initiated at the acute care facility and the patient transferred to us from [facility] on 12/04/2020 12/06/20 Patient admits to postop constipation, insomnia. Patient states that she was only on Vasotec once a day medications were adjusted and ongoing monitoring to determine adequate dosing will continue. Patient with complaints of Right thigh and knee swelling. Venous Doppler is negative. 12/07/20 No complaints 12/08/20 Patient is somewhat anxious but feels that she will be prepared for discharge on Monday. Patient has been going to the bathroom without using the call light. Team conference: Patient daughter and son were present via the phone. Tylenol currently is on hold due to elevated AST and ALT levels. Patient also is bearing too much weight through the right lower extremity. We will make patient nonweightbearing. Patient will follow up with Dr. Carey is on December 24 at 8:40 a.m. and zee will be removed.Patient is on Lovenox 30 mg BID. I have left a message with Dr. Julio office regarding duration of Lovenox and if any oral substitutions can be used. patient is at standby to Min assist with mobility and standby to contact guard with ADLs. We are anticipating a discharge date on Monday. Patient has her own walker. Due to patient's nonweightbearing status would recommend a wheelchair, sock aide, walker basket. Recommending home health care PT OT and nursing with transition to outpatient therapy when appropriate. I spoke with Dr. Poole office,Shayy, who is recommending Lovenox be decreased to 40 mg daily and for a total of 4 weeks ending on December 29, 2020. Patient is independent administrating her own Lovenox 12/09/20 Spoke with Shayy at Dr. Poole's office. Dr. Poole is fine with ongoing full strength aspirin twice a day for prophylaxis of DVT if necessary. Liver enzymes continue to elevate. Tylenol, tramadol, and Lovenox have been held/discontinued with possibilities of causing liver enzymes elevation. Patient has been bearing too much weight thru the right lower extremity. I have downgraded her to nonweightbearing. Orthopedics are aware. Patient voices no complaints. Patient feels fine Review of Systems Review of Systems: All systems reviewed & are unremarkable except as noted in HPI and below Functional Status Ambulation Ability Ability to Ambulate 10 Feet: Independent Ability to Ambulate 50 Feet With 2 Turns: Independent Ambulation Assistive Devices: Walker, Standard Transfers Ability Ability to Transfer In/Out of Chair: Independent Exam Narrative: Exam Narrative: Head is normocephalic. Mood is good. Extraocular muscles are intact. Heart rate and rhythm is regular. Lungs are clear to auscultation. Abdomen is soft nontender. Bilateral upper extremity strength is 4/5 left lower extremity strength is 4-5 right is 4- out of 5. Transfers are standby assistance. Curbs and stairs are min assist. Family members are present for caregiver training. Obje
--- NOTE | 2020-12-09 14:50 | PM.IMPN ---
Progress Note: A&P Assessment and Plan (1) Subcapital fracture of neck of right femur: Code(s): S72.011A - Unspecified intracapsular fracture of right femur, initial encounter for closed fracture Status: Acute Assessment and Plan: Underwent closed reduction with percutaneous fixation on 12/02/[address] Wei Julio at [place]. Tolerated procedure well and pain is well controlled. Rehab managed by [facility] Follow up with orthopedics in 3 weeks for staple removal and repeat x-ray. Analgesics available as needed for pain Venous doppler of right leg negative for DVT (2) Irritable bowel syndrome: Code(s): K58.9 - Irritable bowel syndrome without diarrhea Status: Acute Assessment and Plan: With constipation. No acute issues at this time. She is not on any specific medications for this and manages mostly with diet. Continue miralax daily (3) Hypertension: Code(s): I10 - Essential (primary) hypertension Status: Acute Assessment and Plan: Blood pressure reviewed and has been generally well controlled. Last BP 140/66 continue enalapril and hydrochlorothiazide monitor BP trends (4) Transaminitis: Code(s): R74.01 - Elevation of levels of liver transaminase levels Status: Acute Assessment and Plan: AST and ALT continue to rise. Etiology for this is unclear. Acetaminophen, lovenox, and tramadol have been held Obtaining RUQ US this afternoon. Hepatitis panel negative Tylenol levels <10, lipase wnl, total bilirubin wnl. No abdominal pain. Monitor LFTs. Consider GI consultation based on results of abdominal US. Subjective Date/time seen: 12/09/20 14:50 Interval history: Date of service: 12/08/20 Enriqueta Bobby is a 70-year-old female with a history of hypertension, irritable bowel syndrome, melanoma who is seen in rehab after undergoing surgery for subcapital right femoral neck fracture. she is seen in consultation for medical management. she is feeling fairly well today. She is still having pain in her right thigh that she currently rates as 8/10. She states that is worse with moving around when she completes therapy. When she is resting in bed it is better controlled. She denies any calf pain or pain in her foot. No numbness or tingling. She denies abdominal pain or right upper quadrant pain. She is able to tolerate her diet without issues. She denies postprandial pain. No nausea or vomiting. We discussed her elevated liver enzymes. She maintains that she drinks alcohol sparingly, having a glass of wine 1 or 2 times a week. Denies any recent illness. She has been noting bloating in her abdomen which she has attributed to IBS. She has been having regular bowel movements. Denies nausea or vomiting. No shortness breath, cough, or chest pain. Review of Systems Review of Systems: All systems reviewed & are unremarkable except as noted in HPI and below Exam Narrative: Exam Narrative: Ms. Posada is a well-nourished, well-appearing 70-year-old female who is sitting up in bed. She appears comfortable and is in NARD. Neuro: awake, alert and oriented x4, speech clear, no focal neuro deficits noted HEENMT: normocephalic, atraumatic, EOMI, sclerae anicteric, moist oral mucosa Neck: supple, no lymphadenopathy Respiratory: clear to auscultation bilaterally, nonlabored breathing Cardio: regular rate, regular rhythm with S1-S2 Abdomen: nondistended, normoactive bowel sounds, soft, nontender to palpation, no right upper quadrant tenderness, liver is nonpalpable Extremities: right hip is mildly tender to palpation. incision site is covered with bandage that is c/d/i. Right thigh and knee with trace edema. No erythema or warmth. Bilateral calves without edema, erythema, cyanosis, clubbing, or tenderness to palpation. DP pulses 2+ bilaterally Skin: bruising of right lateral thigh and buttock, rashes or lesions, warm a
[2020-12-09] MEDS: FLUTICASONE PROPIONATE 0.05% NA SPR 16 GM BTL (*BKC) 1 SPRAY NASAL (20:39)
[2020-12-09] MEDS: oxyCODONE HCL (*CRX) 2.5 MG TAB IR PO (21:37)
[2020-12-09 22:00] VITALS: BP 134/66; PULSE 75; RESP 18; TEMP 36.1; O2SAT 97
[2020-12-10 05:19] LABS: Alanine Aminotransferase 527 U/L (4-35); Alkaline Phosphatase 115 U/L (38-126); Anion Gap 6 mmol/L (8-16); Aspartate Amino Transferase 314 U/L (14-36); Bilirubin,Total 0.9 mg/dL (0.2-1.3); Blood Urea Nitrogen 10 mg/dL (7-17); Calcium 9.4 mg/dL (8.4-10.2); Carbon Dioxide 32 mmol/L (22-30); Chloride 98 mmol/L (98-107); Estimated CRCL calculation 61 ml/min; Estimated Glomerular Filt Rate > 60; Glucose 97 mg/dL (65-105); Sodium 136 mmol/L (137-145)
[2020-12-10 05:57] VITALS: BP 126/56; PULSE 58; RESP 16; TEMP 36.8; O2SAT 96
[2020-12-10] MEDS: AZELASTINE HCL NASAL 0.1% 137 MCG/SPR 30 ML BTL 1 SPRAY NASAL (08:28)
[2020-12-10] MEDS: polyethylene glycoL 3350 17 GM POWD.PACK PO (08:29)
[2020-12-10] MEDS: PANTOPRAZOLE 40 MG TABLET PO (08:29)
[2020-12-10] MEDS: hydroCHLOROthiazide 12.5 MG CAPSULE PO (08:29)
[2020-12-10] MEDS: ENALAPRIL MALEATE 10 MG TABLET PO (08:29)
[2020-12-10] MEDS: MULTIVITAMINS THERAPEUTIC TAB (*BKC) 1 TABLET PO (08:29)
[2020-12-10] MEDS: CYANOCOBALAMIN 500 MCG TABLET PO (08:29)
[2020-12-10] MEDS: LIDOCAINE 5% PATCH 1 PATCH TRANSDERM (08:29)
--- NOTE | 2020-12-10 10:01 | WPDNEURORHBP ---
Subjective Date/time seen: 12/10/20 10:01 Interval history: The etiologic diagnosis is mildly impacted subcapital right femoral neck fracture The patient is a 70-year-old female with past medical history of bilateral knee osteoarthritis, hypertension, and irritable bowel syndrome presented to local hospital on 12/01/2020 after suffering a mechanical fall. The patient slipped on the garage floor after she mops at. Imaging demonstrated a mildly impacted subcapital right femur neck fracture. The patient was transferred to [facility] for orthopedic surgery consultation. She underwent a closed reduction percutaneous fixation on 12/02/2020 with Wei Julio MD. postoperatively patient experienced acute blood loss anemia, acute postop pain, and hypertension. She is toe-touch weight-bearing to the right lower extremity. DVT prophylaxis is Lovenox. Zee are to be removed in 3 weeks. X-rays to be obtained at that time. Therapy was initiated at the acute care facility and the patient transferred to us from [facility] on 12/04/2020 12/06/20 Patient admits to postop constipation, insomnia. Patient states that she was only on Vasotec once a day medications were adjusted and ongoing monitoring to determine adequate dosing will continue. Patient with complaints of Right thigh and knee swelling. Venous Doppler is negative. 12/07/20 No complaints 12/08/20 Patient is somewhat anxious but feels that she will be prepared for discharge on Monday. Patient has been going to the bathroom without using the call light. Team conference: Patient daughter and son were present via the phone. Tylenol currently is on hold due to elevated AST and ALT levels. Patient also is bearing too much weight through the right lower extremity. We will make patient nonweightbearing. Patient will follow up with Dr. Carey is on December 24 at 8:40 a.m. and zee will be removed.Patient is on Lovenox 30 mg BID. I have left a message with Dr. Julio office regarding duration of Lovenox and if any oral substitutions can be used. patient is at standby to Min assist with mobility and standby to contact guard with ADLs. We are anticipating a discharge date on Monday. Patient has her own walker. Due to patient's nonweightbearing status would recommend a wheelchair, sock aide, walker basket. Recommending home health care PT OT and nursing with transition to outpatient therapy when appropriate. I spoke with Dr. Poole office,Shayy, who is recommending Lovenox be decreased to 40 mg daily and for a total of 4 weeks ending on December 29, 2020. Patient is independent administrating her own Lovenox 12/09/20 Spoke with Shayy at Dr. Poole's office. Dr. Poole is fine with ongoing full strength aspirin twice a day for prophylaxis of DVT if necessary. Liver enzymes continue to elevate. Tylenol, tramadol, and Lovenox have been held/discontinued with possibilities of causing liver enzymes elevation. Patient has been bearing too much weight thru the right lower extremity. I have downgraded her to nonweightbearing. Orthopedics are aware. Patient voices no complaints. Patient feels fine. 12/10/20 Patient very complimentary of staff and her stay. Patient is appreciative of all that she has learned while on rehab. Liver enzymes have decreased. Patient denies any clinical symptoms except for postop pain. Patient tolerated 2.5 mg of oxycodone last night. Patient states that she slept very well. Patient is aware that she will go home on full-strength aspirin twice a day . While the aspirin will be used for prophylaxis for DVT, it is also her pain medication. Patient will have a limited prescription of 2.5 oxycodone to use for breakthrough pain. With liver enzymes that are falling, will anticipate a discharge for tomorrow. Hospitalist aware. Discharged meds reviewed with patient. Hospitalist has kindly arranged for repeat blood draw thru [facility] and to send to PCP .
[2020-12-10] MEDS: oxyCODONE HCL (*CRX) 2.5 MG TAB IR PO ×2 (10:26→21:15)
[2020-12-10 14:00] VITALS: BP 138/76; PULSE 88; RESP 16; TEMP 36.3; O2SAT 100
[2020-12-10] MEDS: FLUTICASONE PROPIONATE 0.05% NA SPR 16 GM BTL (*BKC) 1 SPRAY NASAL (21:12)
[2020-12-10 22:00] VITALS: BP 139/60; PULSE 73; RESP 18; TEMP 36.7; O2SAT 96
[2020-12-11 05:22] LABS: Alanine Aminotransferase 367 U/L (4-35); Albumin Level 3.9 g/dL (3.5-5.1); Alkaline Phosphatase 105 U/L (38-126); Anion Gap 7 mmol/L (8-16); Aspartate Amino Transferase 149 U/L (14-36); Bilirubin,Total 0.8 mg/dL (0.2-1.3); Blood Urea Nitrogen 13 mg/dL (7-17); Calcium 9.4 mg/dL (8.4-10.2); Carbon Dioxide 30 mmol/L (22-30); Chloride 98 mmol/L (98-107); Estimated CRCL calculation 72 ml/min; Estimated Glomerular Filt Rate > 60; Glucose 97 mg/dL (65-105); Potassium 4.2 mmol/L (3.4-5.0); Sodium 135 mmol/L (137-145)
[2020-12-11 06:00] VITALS: BP 139/61; PULSE 60; RESP 18; TEMP 36.4; O2SAT 96
[2020-12-11] MEDS: LIDOCAINE 5% PATCH 1 PATCH TRANSDERM (09:45)
[2020-12-11] MEDS: AZELASTINE HCL NASAL 0.1% 137 MCG/SPR 30 ML BTL 1 SPRAY NASAL (09:46)
[2020-12-11] MEDS: CYANOCOBALAMIN 500 MCG TABLET PO (09:47)
[2020-12-11] MEDS: ENALAPRIL MALEATE 10 MG TABLET PO (09:47)
[2020-12-11] MEDS: hydroCHLOROthiazide 12.5 MG CAPSULE PO (09:47)
[2020-12-11] MEDS: PANTOPRAZOLE 40 MG TABLET PO (09:47)
[2020-12-11] MEDS: MULTIVITAMINS THERAPEUTIC TAB (*BKC) 1 TABLET PO (09:47)
--- NOTE | 2020-12-11 11:29 | P.DS_ITS ---
DS: Summary Time Spent with Patient Time attestation: Total time spent providing and/or coordinating discharge ser vices: DS: Data Data Completed and Pending Labs on day of discharge: Labs from last 24 hours 12/11/20 05:03 Sodium 135 L Potassium 4.2 Chloride 98 Carbon Dioxide 30 Anion Gap 7 L BUN 13 Creatinine 0.50 L Estim Creat Clear Calc 72 Estimated GFR > 60 Glucose 97 Calcium 9.4 Total Bilirubin 0.8 AST 149 H ALT 367 H Alkaline Phosphatase 105 Total Protein 6.0 L Albumin 3.9 Discharge Plan Discharge Consulting providers: Per Mooney ; Ilene Baptiste Patient Disposition: Home Health Service Activity: no driving Diet: regular Wound Care Instructions: change dressing daily Discharge Instructions: Per Care Coordination: [facility] has been arranged to follow at discharge. [facility] will follow for RN and PT/OT eval and treat. [facility] can be contacted at [phone]. Nursing please fax discharge paperwork to [phone]. change dressing to Right hip daily. keep dressing dry. Patient Instructions: Antibiotic Form, Aspirin (By mouth), Enoxaparin (By injection), Pain Management (DC) Stand Alone Forms: General Discharge Information Follow-up/Referrals: DR. RUI JURADO [Other] ([facility] Orthopaedic surgery APPT December AT 8:40 A.M. ) Maurice,Hank Jernigan MD [Primary Care Provider] - 2 Weeks Discharge Medications: New enalapril maleate 10 mg Tablet 10 mg PO QAM Qty: 30 RF: 0 lidocaine [Lidoderm] 5 % Adhesive Patch,Medicated 3 patch transdermal DAILY Qty: 90 RF: 0 oxycodone 5 mg tablet 2.5 mg PO Q8H PRN (Reason: pain) Qty: 10 RF: 0 Continued Adult One Daily Multivitamin 1 tablet PO DAILY RF: 0 polyethylene glycol 3350 [Miralax] 17 gram Powder In Packet 1 g PO DAILY RF: 0 aspirin 325 mg Tablet 325 mg PO BID RF: 0 Premarin 0.625 mg/gram Cream 0.625 mg VAGINAL WEEKLY RF: 0 hydrochlorothiazide 25 mg Tablet 12.5 mg PO DAILY RF: 0 azelastine 137 mcg (0.1 %) Aerosol,[place] 1 spray INTRANASAL BID RF: 0 fluticasone propionate 50 mcg/actuation [place],Suspension 1 spray INTRANASAL DAILY RF: 0 Calcium 500 + D 1 tab-cap PO DAILY RF: 0 cyanocobalamin (vitamin B-12) 500 mcg PO DAILY RF: 0 ergocalciferol (vitamin D2) 50,000 unit PO WEEKLY RF: 0 senna 1 tablet PO BID PRN (Reason: Constipation) RF: 0 esomeprazole magnesium [Nexium] 40 mg Capsule,Delayed Release(Dr/Ec) 40 mg PO DAILY Qty: 30 RF: 0 cyclobenzaprine 5 mg Tablet 5 mg PO TID PRN (Reason: Muscle Spasm) Qty: 30 RF: 0 Discontinued enalapril maleate [Vasotec] 10 mg Tablet 10 mg PO BID RF: 0 oxycodone 5 mg Tablet 5 mg PO Q4H PRN (Reason: Pain) RF: 0 Tylenol Ex Str Rapid Release 1,000 mg PO BID RF: 0 Other Ambulatory Orders: Comprehensive Metabolic Panel (Routine) Timeframe: 1 Week Location: Determined by Patient Ordered By: Ilene Baptiste Date of admission: 12/04/20 17:50 Primary Care Provider: MauriceHank Admitting Provider: Carissa Pacheco Attending physician on admission: Carissa Pacheco Condition: Stable Quality VTE Prophylaxis VTE prophylaxis: pharmac
--- NOTE | 2020-12-11 11:55 | PM.DS ---
DS: Admitting Diagnosis Admitting Diagnosis Admitting Diagnosis: fall with mildly impacted subcapital right femoral neck fracture DS: Discharge Diagnosis Discharge Diagnosis (1) Subcapital fracture of neck of right femur: Code(s): S72.011A - Unspecified intracapsular fracture of right femur, initial encounter for closed fracture Status: Acute Assessment and Plan: patient will follow up with Dr. Carey is in 3 weeks for staple removal and repeat x-ray. Patient is toe-touch weight-bearing patient has been downgraded to nonweightbearing due to her inability to maintain toe-touch (2) Irritable bowel syndrome: Code(s): K58.9 - Irritable bowel syndrome without diarrhea Status: Acute Assessment and Plan: monitor (3) Hypertension: Code(s): I10 - Essential (primary) hypertension Status: Acute Assessment and Plan: Vasotec 10 mg q.12, hydrochlorothiazide 12.5 mg daily. 12/06/2020 Vasotec his been decreased to 10 mg daily which is what patient was taking at home. (4) Osteoarthritis of knees, bilateral: Code(s): M17.0 - Bilateral primary osteoarthritis of knee Status: Acute Assessment and Plan: monitor (5) DVT prophylaxis: Code(s): Z29.9 - Encounter for prophylactic measures, unspecified Status: Acute Assessment and Plan: ASA 325 mg BID (6) Postoperative pain: Code(s): G89.18 - Other acute postprocedural pain Status: Acute Assessment and Plan: Tylenol 1000 mg b.i.d. p.r.n. tramadol 12/07/2020. Tylenol has been on hold due to elevated liver enzymes. 12/09/2020 tramadol is also on hold (7) Transaminitis: Code(s): R74.01 - Elevation of levels of liver transaminase levels Status: Acute Assessment and Plan: Multifactorial etiology: Tylenol,Lovenox, Tramadol. Acetaminophen level was less than 10 reflecting no toxicity. Patient also was bearing too much weight through the right lower extremity and has been downgraded to nonweightbearing. 12/10/20 Liver enzymes are lower AST 314 ALT 527 DS: Summary Hospital Course Hospital Course: The etiologic diagnosis is mildly impacted subcapital right femoral neck fracture The patient is a 70-year-old female with past medical history of bilateral knee osteoarthritis, hypertension, and irritable bowel syndrome presented to local hospital on 12/01/2020 after suffering a mechanical fall. The patient slipped on the garage floor after she mops at. Imaging demonstrated a mildly impacted subcapital right femur neck fracture. The patient was transferred to [facility] for orthopedic surgery consultation. She underwent a closed reduction percutaneous fixation on 12/02/2020 with Wei Julio MD. postoperatively patient experienced acute blood loss anemia, acute postop pain, and hypertension. She is toe-touch weight-bearing to the right lower extremity. DVT prophylaxis is Lovenox. Triston are to be removed in 3 weeks. X-rays to be obtained at that time. Therapy was initiated at the acute care facility and the patient transferred to us from [facility] on 12/04/2020 REHAB HOSPITAL COURSE: TRANSAMINITIS: AST cristino to 466 and then fell at discharge to 149. ALT raised as high as 534 and felt a 367 at time of discharge. Tylenol Lovenox and tramadol were all discontinued. PAIN MANAGEMENT: patient was placed on Lidoderm patches and an occasional oxycodone DVT prophylaxis; continue aspirin 325 mg b.i.d. times 14 days. After that time patient can take aspirin 325 mg once a day. p.r.n. for pain. patient will receive home health care PT OT and nursing. Liver enzymes will be drawn and sent to Dr. Be I personally spoke with Dr. Be for handoff. patient will have a walker, wheelchair commode for DME patient is to follow up with Dr. Poole is on December 24. Patient was made NWB due to her inability to maintain TTWB. Discharge meds were reviewed with zain
== END 2020-12-11 12:50 | disposition home health service (06) | DRG 561 ==
PROVIDERS: Physician Assistant; Admitting Provider Physical Medicine & Rehabilitation; PCP Internal Medicine Infectious Disease; Visit Provider Physical Medicine & Rehabilitation
DX: S72.011D Unspecified intracapsular fracture of right femur, subsequent encounter for closed fracture with routine healing (principal); M79.89 Other specified soft tissue disorders; I10 Essential (primary) hypertension; K58.9 Irritable bowel syndrome, unspecified; L29.9 Pruritus, unspecified; M17.0 Bilateral primary osteoarthritis of knee; R74.01 Elevation of levels of liver transaminase levels; Z87.891 Personal history of nicotine dependence; W19.XXXD Unspecified fall, subsequent encounter
CPT/HCPCS: 36415; 76705; 80053; 80074; 80307; 83690; 85025; 93970; 97110; 97116; 97162; 97165; 97530; 97535; 97542; A9270; J1650